=== PATIENT | female | born 1940 | race Caucasian/White ===

== ENCOUNTER 2017-11-12 15:53 | Outpatient (CLI) | payer MEDICARE, BC ==
--- NOTE | 2017-11-12 16:16 | RAD ---
PA AND LATERAL CHEST X-RAY: 11/12/2017 HISTORY: Cough and shortness of breath for the past month. COMPARISON: 05/01/2014 FINDINGS: The patient is rotated to the right. This accentuates the cardiac silhouette. The cardiac silhouett e and pulmonary vasculature do appear to be within normal limits. The lungs are clear. Surgical cli ps again overly the right axillary region. There has been no interval change from prior exam. IMPRESSION: No acute cardiopulmonary process. POS: [facility]
[2017-11-12 16:29] LABS: #Basophils 0.1 thou/uL (0.0-0.2); #Eosinphils 0.2 thou/uL (0.0-0.7); #Monocytes 0.6 thou/uL (0.11-0.59); #Neutrophils 3.8 thou/uL (1.40-6.50); %Basophils 1.3 % (0.0-1.0); %Eosinophils 3.2 % (0.0-10.0); %Monocytes 8.6 % (0.0-10.0); Hemoglobin 12.5 g/dL (12.0-16.0); Mean Corpuscular HGB CONC 32.3 g/dL (32.0-36.0); Mean Corpuscular Hemoglobin 27.1 pg (27.0-31.0); Mean Platelet Volume 5.9 fL (7.4-10.4); Platelet Count 414 thou/uL (130-400); RBC Distribution Width 12.4 % (11.5-14.5); Red Blood Cell (RBC) Count 4.61 mill/uL (4.20-5.40); White Blood Cell (WBC) Count 6.7 thou/uL (4.8-10.8)
[2017-11-12 16:36] LABS: ALT (SGPT) 19 U/L (8-55); AST (SGOT) 23 U/L (5-34); Albumin 3.8 g/dL (3.4-4.8); Alkaline Phosphatase 105 U/L (40-150); Anion Gap 14 mmol/L (10-20); BUN (Urea Nitrogen) 17 mg/dL (9.8-20.1); Bilirubin, Total 0.5 mg/dL (0.2-1.2); Calc. Creatinine Clearance 0 mL/min (70-130); Carbon Dioxide 27 mmol/L (23-31); Chloride 105 mmol/L (98-107); Estimated GFR-MDRD 49; Globulin 3.6 g/dL (2.4-3.5); Glucose 105 mg/dL (83-110); Protein, Total 7.4 g/dL (6.0-8.3); Sodium 142 mmol/L (136-145)
== END 2017-11-12 15:54 | disposition home or self-care (01) ==
LOC: SCSRAD 15:53
PROVIDERS: ATTEND Family Medicine
DX: I63.50 Cerebral infarction due to unspecified occlusion or stenosis of unspecified cerebral artery (principal); I48.2 Chronic atrial fibrillation; R06.00 Dyspnea, unspecified
CPT/HCPCS: 36415; 71046; 80053; 85025

== ENCOUNTER 2021-08-02 15:56 | Inpatient (IN) | payer MEDICARE, BC ==
[2021-08-02] MEDS ORDERED: Acetaminophen 325 MG TAB ONE ×2 (16:13)
[2021-08-02 17:18] LABS: #Eosinphils 0.2 thou/uL (0.0-0.7); #Lymphocytes 1.6 thou/uL (1.20-3.40); #Monocytes 0.7 thou/uL (0.11-0.59); #Neutrophils 4.3 thou/uL (1.40-6.50); %Basophils 0.7 % (0.0-1.0); %Eosinophils 2.9 % (0.0-10.0); %Lymphocytes 23.1 % (21.0-51.0); %Monocytes 9.8 % (0.0-10.0); %Neutrophils 63.6 % (42.0-75.0); Hemoglobin 9.6 g/dL (12.0-16.0); Mean Corpuscular Hemoglobin 29.5 pg (27.0-31.0); Mean Corpuscular Volume 89.5 fL (78.0-98.0); Platelet Count 374 thou/uL (130-400); RBC Distribution Width 13.2 % (11.5-14.5); Red Blood Cell (RBC) Count 3.27 mill/uL (4.20-5.40); White Blood Cell (WBC) Count 6.8 thou/uL (4.8-10.8)
[2021-08-02] MEDS ORDERED: Bupivacaine 0.25% 10 ML VIAL ONE ×2 (17:23)
[2021-08-02 17:37] LABS: INR-International Normal Ratio 2.5; Prothrombin Time 27.7 sec (12.0-14.7)
[2021-08-02 17:38] LABS: PTT 52.8 sec (22.9-36.1)
[2021-08-02 17:44] LABS: ALT (SGPT) 15 U/L (8-55); AST (SGOT) 21 U/L (5-34); Albumin 3.3 g/dL (3.4-4.8); Alkaline Phosphatase 77 U/L (40-110); Anion Gap 14 mmol/L (10-20); BUN (Urea Nitrogen) 46 mg/dL (9.8-20.1); Calc. Creatinine Clearance 0 mL/min (70-130); Calcium 9.5 mg/dL (7.8-10.44); Carbon Dioxide 25 mmol/L (23-31); Chloride 106 mmol/L (98-107); Globulin 2.8 g/dL (2.4-3.5); Glucose 102 mg/dL (83-110); Protein, Total 6.1 g/dL (5.8-8.1); Sodium 141 mmol/L (136-145)
[2021-08-02] MEDS ORDERED: Dextrose 5% in Water 1,000 ML IV PRN (18:22)
[2021-08-02] MEDS ORDERED: hydrALAZINE 20 MG/ML VIAL SLOW IVP PRN (18:22)
[2021-08-02] MEDS ORDERED: Dextrose 50% Abboject 50 ML SYRINGE SLOW IVP PRN (18:22)
[2021-08-02] MEDS ORDERED: Morphine 2 MG/ML VIAL ONE (18:52)
[2021-08-02 19:41] VITALS: BMI 29.3
[2021-08-02] MEDS: Sodium Chloride 0.9% 1,000 ML IV SCH (19:59)
[2021-08-02] MEDS: Morphine 4 MG/ML VIAL SLOW IVP PRN (19:59)
[2021-08-02] MEDS: Cyclobenzaprine 10 MG TAB PO PRN (20:38)
[2021-08-02] MEDS: Famotidine 20 MG TAB PO SCH (20:39)
[2021-08-02] MEDS: Acetaminophen 500 MG TAB PO SCH (20:39)
[2021-08-02] MEDS: traMADol HCl 50 MG TAB PO PRN (20:40)
[2021-08-02] MEDS: Senokot S 8.6-50 MG TAB PO SCH (20:41)
[2021-08-03] MEDS: Acetaminophen 500 MG TAB PO SCH ×4 (04:46→21:20)
[2021-08-03 05:38] LABS: #Eosinphils 0.2 thou/uL (0.0-0.7); #Lymphocytes 1.6 thou/uL (1.20-3.40); #Monocytes 0.7 thou/uL (0.11-0.59); %Basophils 0.7 % (0.0-1.0); %Eosinophils 3.6 % (0.0-10.0); %Lymphocytes 24.1 % (21.0-51.0); %Monocytes 11.1 % (0.0-10.0); %Neutrophils 60.6 % (42.0-75.0); Hemoglobin 9.8 g/dL (12.0-16.0); Mean Corpuscular HGB CONC 32.6 g/dL (32.0-36.0); Mean Corpuscular Hemoglobin 29.5 pg (27.0-31.0); Mean Corpuscular Volume 90.5 fL (78.0-98.0); Mean Platelet Volume 6.3 fL (7.4-10.4); Platelet Count 382 thou/uL (130-400); RBC Distribution Width 13.4 % (11.5-14.5); Red Blood Cell (RBC) Count 3.31 mill/uL (4.20-5.40); White Blood Cell (WBC) Count 6.6 thou/uL (4.8-10.8)
[2021-08-03 06:03] LABS: Anion Gap 11 mmol/L (10-20); BUN (Urea Nitrogen) 46 mg/dL (9.8-20.1); Calc. Creatinine Clearance 28 mL/min (70-130); Calcium 8.6 mg/dL (7.8-10.44); Carbon Dioxide 24 mmol/L (23-31); Chloride 109 mmol/L (98-107); Glucose 86 mg/dL (83-110); Phosphorus 3.3 mg/dL (2.3-4.7); Potassium 3.9 mmol/L (3.5-5.1); Sodium 140 mmol/L (136-145)
[2021-08-03] MEDS ORDERED: PHOS-NAK 1 PKT PACK PO SCH (09:00)
[2021-08-03] MEDS: Sodium Chloride 0.9% 1,000 ML IV SCH ×2 (09:13→23:35)
[2021-08-03] MEDS: Polyethylene Glycol 3350 17 GM Packet PO SCH (09:13)
[2021-08-03] MEDS: Senokot S 8.6-50 MG TAB PO SCH ×2 (09:14→21:19)
[2021-08-03] MEDS: traMADol HCl 50 MG TAB PO PRN (09:15)
[2021-08-03] MEDS ORDERED: ceFAZolin 2 GM/Dextrose 50 ML 2 GM in Premix Bag 1 BAG IVPB SCH (12:30)
[2021-08-03] MEDS: Famotidine 20 MG TAB PO SCH (21:18)
[2021-08-03] MEDS: Cyclobenzaprine 10 MG TAB PO PRN (21:20)
[2021-08-04] MEDS: Acetaminophen 500 MG TAB PO SCH ×4 (04:25→21:07)
[2021-08-04 06:15] LABS: #Eosinphils 0.2 thou/uL (0.0-0.7); #Lymphocytes 1.1 thou/uL (1.20-3.40); #Monocytes 0.6 thou/uL (0.11-0.59); #Neutrophils 4.6 thou/uL (1.40-6.50); %Basophils 0.4 % (0.0-1.0); %Eosinophils 2.7 % (0.0-10.0); %Monocytes 9.1 % (0.0-10.0); %Neutrophils 70.8 % (42.0-75.0); Hemoglobin 9.8 g/dL (12.0-16.0); Mean Corpuscular HGB CONC 33.1 g/dL (32.0-36.0); Mean Corpuscular Hemoglobin 30.6 pg (27.0-31.0); Mean Corpuscular Volume 92.2 fL (78.0-98.0); Mean Platelet Volume 6.2 fL (7.4-10.4); Platelet Count 360 thou/uL (130-400); RBC Distribution Width 13.2 % (11.5-14.5); White Blood Cell (WBC) Count 6.5 thou/uL (4.8-10.8)
[2021-08-04 06:27] LABS: INR-International Normal Ratio 1.4; Prothrombin Time 17.5 sec (12.0-14.7)
[2021-08-04 06:28] LABS: PTT 42.8 sec (22.9-36.1)
[2021-08-04 06:39] LABS: Anion Gap 11 mmol/L (10-20); BUN (Urea Nitrogen) 42 mg/dL (9.8-20.1); Calc. Creatinine Clearance 33 mL/min (70-130); Calcium 8.4 mg/dL (7.8-10.44); Carbon Dioxide 23 mmol/L (23-31); Chloride 111 mmol/L (98-107); Glucose 92 mg/dL (83-110); Phosphorus 2.8 mg/dL (2.3-4.7); Potassium 3.9 mmol/L (3.5-5.1); Sodium 141 mmol/L (136-145)
[2021-08-04] MEDS: Morphine 4 MG/ML VIAL SLOW IVP PRN ×2 (07:24→16:09)
[2021-08-04] MEDS: Ondansetron PF 4 MG/2 ML Vial IVP PRN ×2 (07:25→17:55)
[2021-08-04] MEDS: Polyethylene Glycol 3350 17 GM Packet PO SCH (07:37)
[2021-08-04] MEDS: Senokot S 8.6-50 MG TAB PO SCH ×2 (07:37→21:07)
[2021-08-04] MEDS: Sodium Chloride 0.9% 1,000 ML IV SCH (12:33)
[2021-08-04] MEDS: PHOS-NAK 1 PKT PACK PO SCH ×2 (12:33→16:09)
[2021-08-04] MEDS ORDERED: CEFAZOLIN 2 GM VIAL ONE (13:23)
[2021-08-04] MEDS ORDERED: Sodium Chloride 0.9% 100 ML ONE (13:23)
[2021-08-04] MEDS ORDERED: Dexmedetomidine 200 MCG/2 ML VIAL ONE (13:36)
[2021-08-04] MEDS ORDERED: fentaNYL Citrate/PF 100 MCG/2 ML SYRINGE ONE (13:36)
[2021-08-04] MEDS ORDERED: Lidocaine 1% PF 5 ML VIAL ONE (13:49)
[2021-08-04] MEDS ORDERED: PHENYLEPHRINE-NS 100 MCG/ML 10 ML SYRINGE ONE (13:49)
[2021-08-04] MEDS ORDERED: Rocuronium Bromide 10 MG/ML (10ML VIAL) ONE (13:49)
[2021-08-04] MEDS ORDERED: PROPOFOL 200 MG/20 ML VIAL ONE (13:49)
[2021-08-04] MEDS ORDERED: HYDROmorphone 0.5 MG/0.5 ML SYRINGE ONE (14:08)
[2021-08-04] MEDS ORDERED: Fentanyl 100 MCG/2 ML VIAL ONE (15:15)
[2021-08-04] MEDS: CEFAZOLIN 2 GM in Sodium Chloride 0.9% 100 ML IVPB SCH ×2 (15:34→21:05)
[2021-08-04] MEDS: traMADol HCl 50 MG TAB PO PRN (17:51)
[2021-08-04] MEDS: Famotidine 20 MG TAB PO SCH (21:07)
[2021-08-05] MEDS: Acetaminophen 500 MG TAB PO SCH ×4 (03:35→21:46)
[2021-08-05] MEDS: Cyclobenzaprine 10 MG TAB PO PRN (03:36)
[2021-08-05] MEDS: traMADol HCl 50 MG TAB PO PRN ×2 (03:36→11:31)
[2021-08-05] MEDS: Sodium Chloride 0.9% 1,000 ML IV SCH ×2 (04:35→06:26)
[2021-08-05] MEDS: CEFAZOLIN 2 GM in Sodium Chloride 0.9% 100 ML IVPB SCH (06:26)
[2021-08-05 08:35] LABS: #Eosinphils 0.1 thou/uL (0.0-0.7); #Lymphocytes 1.1 thou/uL (1.20-3.40); #Monocytes 0.8 thou/uL (0.11-0.59); #Neutrophils 5.4 thou/uL (1.40-6.50); %Basophils 0.1 % (0.0-1.0); %Eosinophils 1.9 % (0.0-10.0); %Lymphocytes 14.4 % (21.0-51.0); %Monocytes 10.5 % (0.0-10.0); Hemoglobin 8.8 g/dL (12.0-16.0); Mean Corpuscular HGB CONC 31.7 g/dL (32.0-36.0); Mean Corpuscular Volume 94.8 fL (78.0-98.0); Mean Platelet Volume 6.2 fL (7.4-10.4); Platelet Count 418 thou/uL (130-400); RBC Distribution Width 13.4 % (11.5-14.5); Red Blood Cell (RBC) Count 2.93 mill/uL (4.20-5.40); White Blood Cell (WBC) Count 7.4 thou/uL (4.8-10.8)
[2021-08-05 08:50] LABS: Anion Gap 13 mmol/L (10-20); BUN (Urea Nitrogen) 32 mg/dL (9.8-20.1); Calc. Creatinine Clearance 44 mL/min (70-130); Calcium 7.9 mg/dL (7.8-10.44); Carbon Dioxide 19 mmol/L (23-31); Chloride 115 mmol/L (98-107); Glucose 87 mg/dL (83-110); Magnesium 1.8 mg/dL (1.6-2.6); Phosphorus 2.4 mg/dL (2.3-4.7); Sodium 143 mmol/L (136-145)
[2021-08-05] MEDS ORDERED: Magnesium 2 GM/50 ML(in water) 2 GM in Premix Bag 1 BAG IVPB SCH ×2 (09:00→11:00)
[2021-08-05] MEDS ORDERED: PHOS-NAK 1 PKT PACK PO SCH (09:00)
[2021-08-05] MEDS: Polyethylene Glycol 3350 17 GM Packet PO SCH (11:05)
[2021-08-05] MEDS: Ondansetron PF 4 MG/2 ML Vial IVP PRN (11:06)
[2021-08-05] MEDS: Heparin 5,000 UNITS/ML VIAL SC SCH ×3 (11:06→21:47)
[2021-08-05] MEDS: Senokot S 8.6-50 MG TAB PO SCH ×2 (11:06→21:46)
[2021-08-05] MEDS: Famotidine 20 MG TAB PO SCH (21:47)
[2021-08-06] MEDS: Acetaminophen 500 MG TAB PO SCH ×4 (04:31→21:26)
[2021-08-06 06:41] LABS: #Eosinphils 0.2 thou/uL (0.0-0.7); #Lymphocytes 1.2 thou/uL (1.20-3.40); #Monocytes 0.7 thou/uL (0.11-0.59); #Neutrophils 6.1 thou/uL (1.40-6.50); %Basophils 0.2 % (0.0-1.0); %Eosinophils 2.8 % (0.0-10.0); %Lymphocytes 14.1 % (21.0-51.0); %Monocytes 8.4 % (0.0-10.0); %Neutrophils 74.5 % (42.0-75.0); Mean Corpuscular Hemoglobin 29.6 pg (27.0-31.0); Mean Corpuscular Volume 92.4 fL (78.0-98.0); Mean Platelet Volume 6.1 fL (7.4-10.4); Platelet Count 435 thou/uL (130-400); RBC Distribution Width 13.6 % (11.5-14.5); White Blood Cell (WBC) Count 8.2 thou/uL (4.8-10.8)
[2021-08-06 07:05] LABS: Anion Gap 13 mmol/L (10-20); BUN (Urea Nitrogen) 28 mg/dL (9.8-20.1); Calc. Creatinine Clearance 56 mL/min (70-130); Calcium 8.7 mg/dL (7.8-10.44); Carbon Dioxide 19 mmol/L (23-31); Chloride 111 mmol/L (98-107); Glucose 95 mg/dL (83-110); Magnesium 2.3 mg/dL (1.6-2.6); Phosphorus 2.4 mg/dL (2.3-4.7); Potassium 4.1 mmol/L (3.5-5.1); Sodium 139 mmol/L (136-145)
[2021-08-06] MEDS ORDERED: PHOS-NAK 1 PKT PACK PO SCH (07:45)
[2021-08-06] MEDS: Heparin 5,000 UNITS/ML VIAL SC SCH ×3 (08:48→20:10)
[2021-08-06] MEDS: Polyethylene Glycol 3350 17 GM Packet PO SCH (08:48)
[2021-08-06] MEDS: Senokot S 8.6-50 MG TAB PO SCH ×2 (08:49→20:25)
[2021-08-06] MEDS ORDERED: levETIRAcetam 500 MG TAB PO SCH (11:30)
[2021-08-06] MEDS ORDERED: Bisacodyl 10 MG SUPP PR SCH (11:30)
[2021-08-06] MEDS ORDERED: Carvedilol 6.25 MG TAB PO SCH (11:30)
[2021-08-06] MEDS ORDERED: Sodium Chloride 0.9% 500 ML IV SCH (19:15)
[2021-08-06] MEDS: levETIRAcetam 500 MG TAB PO SCH (20:09)
[2021-08-06] MEDS: Famotidine 20 MG TAB PO SCH (20:09)
[2021-08-06] MEDS: Mirtazapine 30 MG Soltab PO SCH (20:10)
[2021-08-06] MEDS ORDERED: Rosuvastatin 5 MG TAB PO SCH (21:00)
[2021-08-07] MEDS: Acetaminophen 500 MG TAB PO SCH ×4 (04:56→21:17)
[2021-08-07] MEDS: Polyethylene Glycol 3350 17 GM Packet PO SCH (07:13)
[2021-08-07] MEDS: Senokot S 8.6-50 MG TAB PO SCH ×2 (07:13→20:50)
[2021-08-07] MEDS: levETIRAcetam 500 MG TAB PO SCH ×2 (08:40→19:20)
[2021-08-07] MEDS: Atorvastatin Calcium 40 MG TAB PO SCH (08:40)
[2021-08-07] MEDS: Oxybutynin 5 MG TAB PO SCH (08:40)
[2021-08-07] MEDS: Carvedilol 6.25 MG TAB PO SCH (08:40)
[2021-08-07] MEDS: Heparin 5,000 UNITS/ML VIAL SC SCH ×3 (08:41→19:24)
[2021-08-07 16:27] LABS: #Eosinphils 0.3 thou/uL (0.0-0.7); #Lymphocytes 1.2 thou/uL (1.20-3.40); #Monocytes 0.6 thou/uL (0.11-0.59); #Neutrophils 4.7 thou/uL (1.40-6.50); %Basophils 0.5 % (0.0-1.0); %Eosinophils 3.7 % (0.0-10.0); %Monocytes 9.2 % (0.0-10.0); %Neutrophils 68.7 % (42.0-75.0); Hemoglobin 7.7 g/dL (12.0-16.0); Mean Corpuscular HGB CONC 32.8 g/dL (32.0-36.0); Mean Corpuscular Hemoglobin 29.6 pg (27.0-31.0); Mean Corpuscular Volume 90.4 fL (78.0-98.0); Mean Platelet Volume 5.8 fL (7.4-10.4); Platelet Count 452 thou/uL (130-400); RBC Distribution Width 14.1 % (11.5-14.5); Red Blood Cell (RBC) Count 2.61 mill/uL (4.20-5.40); White Blood Cell (WBC) Count 6.9 thou/uL (4.8-10.8)
[2021-08-07 16:54] LABS: Anion Gap 12 mmol/L (10-20); BUN (Urea Nitrogen) 22 mg/dL (9.8-20.1); Calc. Creatinine Clearance 65 mL/min (70-130); Calcium 8.6 mg/dL (7.8-10.44); Carbon Dioxide 19 mmol/L (23-31); Chloride 115 mmol/L (98-107); Glucose 99 mg/dL (83-110); Magnesium 2.2 mg/dL (1.6-2.6); Phosphorus 1.7 mg/dL (2.3-4.7); Potassium 4.2 mmol/L (3.5-5.1); Sodium 142 mmol/L (136-145)
[2021-08-07] MEDS ORDERED: Sodium Phosphate 30 MMOL in Sodium Chloride 0.9% 250 ML 250 ML IVPB SCH (17:30)
[2021-08-07] MEDS: traMADol HCl 50 MG TAB PO PRN (19:17)
[2021-08-07] MEDS: Famotidine 20 MG TAB PO SCH (19:20)
[2021-08-07] MEDS: Mirtazapine 30 MG Soltab PO SCH (19:21)
[2021-08-08] MEDS: Acetaminophen 500 MG TAB PO SCH ×3 (04:28→15:46)
[2021-08-08 07:22] LABS: #Eosinphils 0.2 thou/uL (0.0-0.7); #Lymphocytes 1.5 thou/uL (1.20-3.40); #Monocytes 0.7 thou/uL (0.11-0.59); %Basophils 0.6 % (0.0-1.0); %Eosinophils 3.7 % (0.0-10.0); %Lymphocytes 23.2 % (21.0-51.0); %Monocytes 10.3 % (0.0-10.0); %Neutrophils 62.2 % (42.0-75.0); Hemoglobin 7.4 g/dL (12.0-16.0); Mean Corpuscular HGB CONC 31.7 g/dL (32.0-36.0); Mean Corpuscular Hemoglobin 30.4 pg (27.0-31.0); Mean Corpuscular Volume 95.8 fL (78.0-98.0); Mean Platelet Volume 6.2 fL (7.4-10.4); Platelet Count 425 thou/uL (130-400); RBC Distribution Width 14.4 % (11.5-14.5); Red Blood Cell (RBC) Count 2.45 mill/uL (4.20-5.40); White Blood Cell (WBC) Count 6.5 thou/uL (4.8-10.8)
[2021-08-08 07:44] LABS: Anion Gap 10 mmol/L (10-20); BUN (Urea Nitrogen) 19 mg/dL (9.8-20.1); Calc. Creatinine Clearance 71 mL/min (70-130); Calcium 8.6 mg/dL (7.8-10.44); Carbon Dioxide 20 mmol/L (23-31); Chloride 116 mmol/L (98-107); Glucose 70 mg/dL (83-110); Magnesium 2.1 mg/dL (1.6-2.6); Phosphorus 3.4 mg/dL (2.3-4.7); Potassium 3.7 mmol/L (3.5-5.1); Sodium 142 mmol/L (136-145)
[2021-08-08] MEDS ORDERED: Potassium Chloride 10 MEQ TAB PO SCH (08:00)
[2021-08-08] MEDS: Atorvastatin Calcium 40 MG TAB PO SCH (08:57)
[2021-08-08] MEDS: levETIRAcetam 500 MG TAB PO SCH (08:58)
[2021-08-08] MEDS: Carvedilol 6.25 MG TAB PO SCH (08:58)
[2021-08-08] MEDS: Oxybutynin 5 MG TAB PO SCH (08:59)
[2021-08-08] MEDS ORDERED: Furosemide 20 MG TAB PO SCH ×2 (09:00)
[2021-08-08] MEDS ORDERED: Apixaban 5 MG TAB PO SCH (09:00)
[2021-08-08] MEDS: Polyethylene Glycol 3350 17 GM Packet PO SCH (09:03)
[2021-08-08] MEDS: Senokot S 8.6-50 MG TAB PO SCH (09:03)
[2021-08-08 16:45] VITALS: BP 115/73; TEMP 97.4
== END 2021-08-08 19:26 | DRG 481 ==
LOC: ERS 15:56 → SURG B 18:25
PROVIDERS: ADMIT Physician Assistant Medical; ATTEND Surgery
PROC: 0QH736Z Insertion of Intramedullary Internal Fixation Device into Left Upper Femur, Percutaneous Approach (ICD-10-PCS; principal; 2021-08-04)
DX: S72.142A Displaced intertrochanteric fracture of left femur, initial encounter for closed fracture (principal); I69.954 Hemiplegia and hemiparesis following unspecified cerebrovascular disease affecting left non-dominant side; N17.9 Acute kidney failure, unspecified; Z20.822 Contact with and (suspected) exposure to COVID-19; I10 Essential (primary) hypertension; I48.91 Unspecified atrial fibrillation; E78.5 Hyperlipidemia, unspecified; F03.90 Unspecified dementia, unspecified severity, without behavioral disturbance, psychotic disturbance, mood disturbance, and anxiety; S49.82XA Other specified injuries of left shoulder and upper arm, initial encounter; X58.XXXA Exposure to other specified factors, initial encounter; Z90.49 Acquired absence of other specified parts of digestive tract; Z98.51 Tubal ligation status; Z88.2 Allergy status to sulfonamides; Z88.1 Allergy status to other antibiotic agents; Z79.899 Other long term (current) drug therapy; Z79.01 Long term (current) use of anticoagulants; Z74.01 Bed confinement status
CPT/HCPCS: 20552; 36415; 71045; 72170; 76000; 80048; 80053; 83735; 84100; 85025; 85610; 85730; 93005; 96374; C1713; G0390; J1170; J1644; J2270; J2405; J2704; J3010; J3475; J3490; J7030; J7050; S0020; U0003; U0005